=== PATIENT | female | born 1970 | race African-American/Black ===

== ENCOUNTER 2019-03-06 07:01 | Emergency (ER) | payer BC ==
[2019-03-06] MEDS ORDERED: IPRATROPIUM BROM 0.5MG/2.5ML ONE (07:30)
[2019-03-06] MEDS ORDERED: ALBUTEROL 2.5 MG/3 ML NEB SOL ONE (07:32)
--- NOTE | 2019-03-06 08:28 | EDPHYS ---
Physician Documentation [facility] Name: Iona Mendez Age: 49 yrs Sex: Female : 1970 Arrival Date: 03/06/2019 Time: 07:04 Bed 13 Private MD: ED Physician Gonzalo Wilson HPI: 03/06 08:26 This 49 yrs old Black Female presents to ER via Ambulatory with complaints of Sore kb Throat, Chest Congestion, Ear Pain. 08:26 The patient or guardian reports cough, that is intermittent, described as moderate, kb with no sputum, flu symptoms, low-grade fever, myalgias. Onset: The symptoms/episode began/occurred 3 day(s) ago. Severity of symptoms: At their worst the symptoms were moderate, in the emergency department the symptoms are unchanged. Modifying factors: The symptoms are alleviated by nothing, the symptoms are aggravated by nothing. Associated signs and symptoms: Pertinent positives: earache, fever, sore throat. The patient has not experienced similar symptoms in the past. The patient has not recently seen a physician. 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 - Social history:: Smoking status: Patient/guardian denies using tobacco. - Ebola Screening: : No symptoms or risks identified at this time. ROS: 08:25 Neck: Negative for injury, pain, and swelling, Cardiovascular: Negative for chest pain, kb palpitations, and edema, Abdomen/GI: Negative for abdominal pain, nausea, vomiting, diarrhea, and constipation, Back: Negative for injury and pain, : Negative for injury, bleeding, discharge, and swelling, MS/Extremity: Negative for injury and deformity, Skin: Negative for injury, rash, and discoloration, Neuro: Negative for headache, weakness, numbness, tingling, and seizure. 08:25 Constitutional: Positive for chills, fatigue, fever, malaise. 08:25 ENT: Positive for ear pain, rhinorrhea. 08:25 Respiratory: Positive for cough, Negative for dyspnea on exertion, hemoptysis, orthopnea, pleurisy, shortness of breath, sputum production, wheezing. Exam: 08:25 Constitutional: This is a well developed, well nourished patient who is awake, alert, kb and in no acute distress. Head/Face: Normocephalic, atraumatic. ENT: Nares patent. No nasal discharge, no septal abnormalities noted. Tympanic membranes are normal and external auditory canals are clear. Oropharynx with no redness, swelling, or masses, exudates, or evidence of obstruction, uvula midline. Mucous membranes moist. Neck: Trachea midline, no thyromegaly or masses palpated, and no cervical lymphadenopathy. Supple, full range of motion without nuchal rigidity, or vertebral point tenderness. No Meningismus. Chest/axilla: Normal chest wall appearance and motion. Nontender with no deformity. No lesions are appreciated. Cardiovascular: Regular rate and rhythm with a normal S1 and S2. No gallops, murmurs, or rubs. Normal PMI, no JVD. No pulse deficits. Respiratory: Lungs have equal breath sounds bilaterally, clear to auscultation and percussion. No rales, rhonchi or wheezes noted. No increased work of breathing, no retractions or nasal flaring. Abdomen/GI: Soft, non-tender, with normal bowel sounds. No distension or tympany. No guarding or rebound. No evidence of tenderness throughout. Skin: Warm, dry with normal turgor. Normal color with no rashes, no lesions, and no evidence of cellulitis. MS/ Extremity: Pulses equal, no cyanosis. Neurovascular intact. Full, normal range of motion. Neuro: Awake and alert, GCS 15, oriented to person, place, time, and situation. Cranial nerves II-XII grossly intact. Motor strength 5/5 in all extremities. Sensory grossly intact. Cerebellar exam normal. Normal gait. Vital Signs: 07:15 BP 170 / 84; Pulse 79; Resp 18 S; Temp 99.0(O); Pulse Ox 95% on R/A; Weight 97.98 kg aa5 (R); Height 5 ft. 5 in. 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 kb 08:26 Data reviewed: vital signs, nurses notes. Data interpreted: Pulse oximetry: on room air kb is 94 %. Interpretation: acceptable. Counseling: I had a detailed discussion with the patient and/or guardian regarding: the historical points, exam findings, and any diagnostic results supporting the discharge/admit diagnosis, lab results, the need for outpatient follow up, a family practitioner, to return to the emergency department if symptoms worsen or persist or if there are any questions or concerns that arise at home. 03/06 07:20 Order name: Flu; Complete Time: 08:16 kb 03/06 07:20 Order name: Strep; Complete Time: 07:39 kb 03/06 07:34 Order name: Labs - recollect needed; Complete Time: 07:35 bd 03/06 07:43 Order name: Throat Culture EDMS Administered Medications: 07:35 Drug: DuoNeb (3:1) (2.5 mg - 0.5 mg) 3 ml Route: Nebulizer; aa5 08:38 Follow up: Response: No adverse reaction vc Disposition: 12:42 Co-signature as Attending Physician, Gonzalo Wilson MD I agree with the assessment and kdr plan of care. Disposition: 03/06/19 08:27 Discharged to Home. Impression: Influenza due to identified novel influenza A virus. - Condition is Stable. - Discharge Instructions: Influenza, Adult, [id number], Viral Respiratory Infection, [id number]. - Prescriptions for Albuterol Sulfate 90 mcg/actuation - inhale 1-2 puff by INHALATION route every 4-6 hours; 1 Inhaler. - Medication Reconciliation Form, Thank You Letter, Antibiotic Education, Prescription Opioid Use, Work release form form. - Follow up: Emergency Department; When: As needed; Reason: Worsening of condition. Follow up: Private Physician; When: 2 - 3 days; Reason: Recheck today's complaints, Continuance of care, Re-evaluation by your physician. Signatures: Dispatcher [employer] EDMS Suzy Rose, ASSISTANT QUALITY MANAGER-C ASSISTANT QUALITY MANAGER-Ckb Josefa Beltrán Kevin, MD MD kdr Calderon, Audri, RN RN aa5 Mary Lou Chou RN, vc Corrections: (The following items were deleted from the chart) 08:26 08:25 ENT: Positive for rhinorrhea, kb kb 08:52 08:27 03/06/2019 08:27 Discharged to Home. Impression: Influenza due to identified aa5 novel influenza A virus. Condition is Stable. Forms are Medication Reconciliation Form, Thank You Letter, Antibiotic Education, Prescription Opioid Use. Follow up: Emergency Department; When: As needed; Reason: Worsening of condition. Follow up: Private Physician; When: 2 - 3 days; Reason: Recheck today's complaints, Continuance of care, Re-evaluation by your physician. kb
--- NOTE | 2019-03-06 08:28 | ER ---
Nurse's Notes [facility] Name: Iona Mendez Age: 49 yrs Sex: Female : 1970 Arrival Date: 03/06/2019 Time: 07:04 Bed 13 Private MD: Diagnosis: Influenza due to identified novel influenza A virus Presentation: 03/06 07:10 Presenting complaint: Patient states: sore throat, fever up to 102.0 F, isabel ear pain, aa5 non-productive cough, and chest congestion x 2 days ago. 07:10 Transition of care: patient was not received from another setting of care. Onset of aa5 symptoms was February 2019. Risk Assessment: Do you want to hurt yourself or someone else? Patient reports no desire to harm self or others. Initial Sepsis Screen: Does the patient meet any 2 criteria? No. Patient's initial sepsis screen is negative. Does the patient have a suspected source of infection? No. Patient's initial sepsis screen is negative. Care prior to arrival: None. 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 - Social history:: Smoking status: Patient/guardian denies using tobacco. - Ebola Screening: : No symptoms or risks identified at this time. Screenin:26 Abuse screen: Denies threats or abuse. Nutritional screening: No deficits noted. aa5 Tuberculosis screening: No symptoms or risk factors identified. Fall Risk None identified. Assessment: 07:15 General: Appears comfortable, Behavior is calm, cooperative. Pain: Complains of pain in aa5 throat and ears Pain currently is 9 out of 10 on a pain scale. Pain began 2-3 days ago. Is continuous. Neuro: Level of Consciousness is awake, alert, obeys commands, Oriented to person, place, time, situation. Cardiovascular: Heart tones S1 S2 present Rhythm is regular. Respiratory: Reports cough that is non-productive, Airway is patent Respiratory effort is even, unlabored, Respiratory pattern is regular, symmetrical, Breath sounds are clear bilaterally. GI: No signs and/or symptoms were reported involving the gastrointestinal system. : No signs and/or symptoms were reported regarding the genitourinary system. EENT: Throat is reddened. Derm: Skin is dry, Skin is normal, Skin temperature is warm. Musculoskeletal: Range of motion: intact in all extremities. 07:23 Neuro: Level of Consciousness is awake, alert, obeys commands, Oriented to person, aa5 place, time, situation. Respiratory: Airway is patent Respiratory effort is even, unlabored, Respiratory pattern is regular, symmetrical. Derm: Skin is dry, Skin is normal, Skin temperature is warm. 07:23 Respiratory: Denies shortness of breath. aa5 08:50 Neuro: Level of Consciousness is awake, alert, obeys commands, Oriented to person, aa5 place, time, situation. Respiratory: Airway is patent Respiratory effort is even, unlabored, Respiratory pattern is regular, symmetrical. Derm: Skin is dry, Skin is normal, Skin temperature is warm. Vital Signs: 07:15 BP 170 / 84; Pulse 79; Resp 18 S; Temp 99.0(O); Pulse Ox 95% on R/A; Weight 97.98 kg aa5 (R); Height 5 ft. 5 in. 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 as 07:10 Arm band placed on Patient placed in an exam room, on a stretcher. aa5 07:10 Patient has correct armband on for positive identification. Bed in low position. Call aa5 light in reach. Side rails up X 1. Pulse ox on. NIBP on. 07:12 Suzy Rose FNP-C is PHCP. kb 07:12 Gonzalo Wilson MD is Attending Physician. alcon 07:20 Amada Menendez, RN is Primary Nurse. aa5 07:22 Triage completed. aa5 08:50 No provider procedures requiring assistance completed. Patient did not have IV access aa5 during this emergency room visit. Administered Medications: 07:35 Drug: DuoNeb (3:1) (2.5 mg - 0.5 mg) 3 ml Route: Nebulizer; aa5 08:38 Follow up: Response: No adverse reaction vc Outcome: 08:27 Discharge ordered by . kb 08:50 Discharged to home ambulatory. aa5 08:50 Condition: stable 08:50 Discharge instructions given to patient, Instructed on discharge instructions, follow up and referral plans. medication usage, Demonstrated understanding of instructions, follow-up care, medications, Prescriptions given X 1. 08:52 Patient left the ED. aa5 Signatures: Suzy Rose, CONTRACTOR BROOMCORN THRESHING-C CONTRACTOR BROOMCORN THRESHING-Ckb Marie Harley as Amada Menendez, RN RN aa5 Mary Lou Chou RN RN vc Corrections: (The following items were deleted from the chart) 07:24 07:10 Acuity: FRANCIS 4 aa5 aa5 09:39 07:15 Respiratory: Reports cough that is non-productive, Airway is patent Respiratory aa5 effort is even, unlabored, Respiratory pattern is regular, symmetrical, aa5
[2019-03-06 08:58] VITALS: TEMP 99
[2019-03-06 09:00] VITALS: BP 167/77; O2SAT 98
== END 2019-03-06 08:52 | disposition home or self-care (01) ==
LOC: ER 07:01
DX: J09.X2 Influenza due to identified novel influenza A virus with other respiratory manifestations (principal)
CPT/HCPCS: 87070; 87081; 87804; 94640; 99284